=== PATIENT | female | born 1945 | race Caucasian/White ===

== ENCOUNTER 2018-08-27 09:56 | Emergency (ER) | payer MEDICARE, BC ==
--- NOTE | 2018-08-27 10:23 | ER Document Report ---
ED Medical Screen (RME) - General Chief Complaint: Head Injury Stated Complaint: EYE INJURY Time Seen by Provider: 08/27/18 10:20 Primary Care Provider: KRISTIN RANIES NP [Primary Care Provider] - Follow up as needed Mode of Arrival: Ambulatory Information source: Patient TRAVEL OUTSIDE OF THE [place] IN LAST 30 DAYS: No - HPI Patient complains to provider of: fall Onset: This morning - pt tripped and fell earlier this am at home hit head and face. Takes ASA q d. Also pain to both forearms. No LOC - Related Data Allergies/Adverse Reactions: cephalexin monohydrate [From K[employer]] Allergy (Verified 08/27/18 10:00) Past Medical History - Past Medical History Cardiac Medical History: Reports: Hx Hypercholesterolemia, Hx Hypertension Endocrine Medical History: Reports: Hx Diabetes Mellitus Type 2 Renal/ Medical History: Denies: Hx Peritoneal Dialysis - Immunizations Hx Diphtheria, Pertussis, Tetanus Vaccination: Yes Physical Exam - Vital signs Vitals: Temp Pulse Resp BP Pulse Ox 98.9 F 77 16 141/60 H 96 08/27/18 10:01 08/27/18 10:01 08/27/18 10:01 08/27/18 10:01 08/27/18 10:01 Course - Vital Signs Vital signs: Temp Pulse Resp BP Pulse Ox 98.9 F 77 16 141/60 H 96 08/27/18 10:01 08/27/18 10:01 08/27/18 10:01 08/27/18 10:01 08/27/18 10:01 Doctor's Discharge - Discharge Referrals: KRISTIN RAINES NP [Primary Care Provider] - Follow up as needed
--- NOTE | 2018-08-27 11:58 | RADIOLOGY REPORT (SQ) ---
EXAM DESCRIPTION: FOREARM RIGHT COMPLETED DATE/TIME: 08/27/2018 11:05 am REASON FOR STUDY: fall pain right mid forearm COMPARISON: None. NUMBER OF VIEWS: Two views. TECHNIQUE: Two radiographic images acquired of the right forearm, including elbow and wrist in at le ast one projection. LIMITATIONS: None. FINDINGS: MINERALIZATION: Normal. BONES: No acute fracture. No worrisome bone lesions. SOFT TISSUES: No obvious swelling or foreign body. OTHER: No other significant finding. IMPRESSION: NEGATIVE STUDY OF THE RIGHT FOREARM. NO RADIOGRAPHIC EVIDENCE OF ACUTE INJURY. TECHNICAL DOCUMENTATION: JOB ID: [id number] [employer]- All Rights Reserved Reading location - IP/workstation name: [email or web address]
--- NOTE | 2018-08-27 11:58 | RADIOLOGY REPORT (SQ) ---
EXAM DESCRIPTION: FOREARM LEFT COMPLETED DATE/TIME: 08/27/2018 11:05 am REASON FOR STUDY: fall , injury left mid forearm COMPARISON: None. NUMBER OF VIEWS: Two views. TECHNIQUE: Two radiographic images acquired of the left forearm, including elbow and wrist in at [address] one projection. LIMITATIONS: None. FINDINGS: MINERALIZATION: Normal. BONES: No acute fracture. No worrisome bone lesions. SOFT TISSUES: No obvious swelling or foreign body. OTHER: No other significant finding. IMPRESSION: NEGATIVE STUDY OF THE LEFT FOREARM. NO RADIOGRAPHIC EVIDENCE OF ACUTE INJURY. TECHNICAL DOCUMENTATION: JOB ID: [id number] [employer]- All Rights Reserved Reading location - IP/workstation name: [email or web address] [id number]
--- NOTE | 2018-08-27 12:18 | RADIOLOGY REPORT (SQ) ---
EXAM DESCRIPTION: CT HEAD WITHOUT COMPLETED DATE/TIME: 08/27/2018 11:44 am REASON FOR STUDY: fall COMPARISON: CT facial bones same date TECHNIQUE: Axial images acquired through the brain without intravenous contrast. Images reviewed wi th bone, brain and subdural windows. Additional sagittal and coronal reconstructions were generated. Images stored on PACS. All CT scanners at this facility use dose modulation, iterative reconstruction, and/or weight based d osing when appropriate to reduce radiation dose to as low as reasonably achievable (ALARA). [facility]: Dose Right [facility]: CareDose [facility]: Dose Right [facility]: Teradose 4D [facility]: [employer] RADIATION DOSE: CT Rad equipment meets quality standard of care and radiation dose reduction techniq ues were employed. CTDIvol: 53.2 mGy. DLP: 991 mGy-cm. mGy. LIMITATIONS: None. FINDINGS: VENTRICLES: Normal size and contour. CEREBRUM: No masses. No hemorrhage. No midline shift. No evidence for acute infarction. Normal gra y/white matter differentiation. No areas of low density in the white matter. CEREBELLUM: No masses. No hemorrhage. No alteration of density. No evidence for acute infarction. EXTRAAXIAL SPACES: No fluid collections. No masses. ORBITS AND GLOBE: No intra- or extraconal masses. Normal contour of globe without masses. CALVARIUM: No fracture. PARANASAL SINUSES: There is mucous membrane thickening in the right frontal sinus and anterior ethmoi d air cells. Accompanying CT facial bones demonstrates an acute minimally depressed medial orbital w all fracture. No other facial fractures are identified. SOFT TISSUES: Right-sided preseptal orbital soft tissue swelling. OTHER: No other significant finding. IMPRESSION: No acute intracranial changes. Minimally depressed right medial orbital wall fracture, best shown on the accompanying CT facial bone s. No right orbital floor fracture. Mild right preseptal orbital soft tissue swelling without retro bulbar hematoma or gross globe injury. EVIDENCE OF ACUTE STROKE: NO. COMMENT: Quality ID # [id number]: Final reports with documentation of one or more dose reduction techniques (e.g., Automated exposure control, adjustment of the mA and/or kV according to patient size, use of iterative reconstruction technique) TECHNICAL DOCUMENTATION: JOB ID: [id number] [employer]- All Rights Reserved Reading location - IP/workstation name: [email or web address]
--- NOTE | 2018-08-27 12:21 | RADIOLOGY REPORT (SQ) ---
EXAM DESCRIPTION: CT FACIAL AREA WITHOUT COMPLETED DATE/TIME: 08/27/2018 11:44 am REASON FOR STUDY: fall COMPARISON: CT brain same date TECHNIQUE: Noncontrasted images through the facial bones and orbits windowed for bone and soft tissu e. Additional coronal and sagittal reconstructed images reviewed. All images stored on PACS. All CT scanners at this facility use dose modulation, iterative reconstruction, and/or weight based d osing when appropriate to reduce radiation dose to as low as reasonably achievable (ALARA). [facility]: Dose Right [facility]: CareDose [facility]: Dose Right [facility]: Teradose 4D [facility]: [employer] RADIATION DOSE: CT Rad equipment meets quality standard of care and radiation dose reduction techniq ues were employed. CTDIvol: 30.4 mGy. DLP: 570 mGy-cm. mGy. LIMITATIONS: None. FINDINGS: FACIAL BONES: Acute minimally depressed right medial wall orbital fracture, with adjacent fluid filling the anterior right ethmoid air cells and fronto ethmoid junction. No significant intra orbital hematoma. Findings are best shown on axial images 48-51, and coronal reconstructions 22 thro ugh 27. No right orbital floor fracture. No other facial fractures are identified. ORBITS: Right preseptal orbital soft tissue swelling without retrobulbar hematoma. Globe and optic n erve grossly intact. Right medial orbital wall fracture as above. 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 Left orbital soft tissues are unremarkable PARANASAL SINUSES: Mucous membrane thickening/ fluid in the right anterior ethmoid air cells and fron to ethmoid junction No nasal polyps. Maxillary sinus outlets are patent. SOFT TISSUES: Right preseptal orbital soft tissue swelling INFERIOR BRAIN: Limited view. No acute findings. OTHER: No other significant finding. IMPRESSION: Acute minimally depressed right medial wall orbital fracture with adjacent fluid in the anterior ethmoid air cells. No significant intraorbital hematoma. Globes intact. Right preseptal o rbital soft tissue swelling. TECHNICAL DOCUMENTATION: JOB ID: [id number] Quality ID # [id number]: Final reports with documentation of one or more dose reduction techniques (e.g., Au tomated exposure control, adjustment of the mA and/or kV according to patient size, use of iterative reconstruction technique) 2010 [employer]- All Rights Reserved Reading location - IP/workstation name: [email or web address]
[2018-08-27 13:21] VITALS: BP 129/65
--- NOTE | 2018-08-27 16:43 | ER Document Report ---
Entered by ADRIENNE RABAGO SCRIBE 08/27/18 1237 Acting as scribe for:JAZMINE GLOVER MD ED General - General Chief Complaint: Head Injury Stated Complaint: EYE INJURY Time Seen by Provider: 08/27/18 10:20 Primary Care Provider: KRISTIN RAINES NP [Primary Care Provider] - Follow up as needed Mode of Arrival: Ambulatory Information source: Patient Notes: Patient is a 73 year old female with HTN, type 2 diabetes presents to the emergency department complaining of right eye and bilateral forearm pain secondary a mechanical trip and fall. Patient states she tripped over one of her dogs when getting out of bed around 0500 this morning. She states she proceeded to fall with her arms outstretched and hit her right eye on a dresser. She sta oanh she has some bilateral forearm tenderness but otherwise feels fine. She denies a loss of consciousness. TRAVEL OUTSIDE OF THE [place] IN LAST 30 DAYS: No - Related Data Allergies/Adverse Reactions: cephalexin monohydrate [From [employer] Allergy (Verified 08/27/18 10:00) Past Medical History - General Information source: Patient - Social History Smoking Status: Former Smoker - quit 20 years ago as of 2019 Cigarette use (# per day): No Chew tobacco use (# tins/day): No Smoking Education Provided: No Frequency of alcohol use: Rare Family History: Reviewed & Not Pertinent Patient has suicidal ideation: No Patient has homicidal ideation: No - Past Medical History Cardiac Medical History: Reports: Hx Hypercholesterolemia, Hx Hypertension Endocrine Medical History: Reports: Hx Diabetes Mellitus Type 2 - Immunizations Hx Diphtheria, Pertussis, Tetanus Vaccination: Yes Review of Systems - Review of Systems Constitutional: No symptoms reported EENT: See HPI Cardiovascular: No symptoms reported Respiratory: No symptoms reported Gastrointestinal: No symptoms reported Genitourinary: No symptoms reported Female Genitourinary: No symptoms reported Musculoskeletal: See HPI Skin: No symptoms reported Hematologic/Lymphatic: No symptoms reported Neurological/Psychological: No symptoms reported -: Yes All other systems reviewed and negative Physical Exam - Vital signs Vitals: Temp Pulse Resp BP Pulse Ox 98.9 F 77 16 141/60 H 96 08/27/18 10:01 08/27/18 10:01 08/27/18 10:01 08/27/18 10:01 08/27/18 10:01 - Notes Notes: GENERAL: Alert, interacts well. No acute distress. HEAD: Normocephalic. EYES: Pupils equal, round, and reactive to light. Extraocular movements intact. Periorbital and medial orbital ecchymoses to the right eye, no bony abnormalities. ENT: Oral mucosa moist, tongue midline. Dried blood in right nostril. NECK: Full range of motion. Supple. Trachea midline. LUNGS: Clear to auscultation bilaterally, no wheezes, rales, or rhonchi. No respiratory distress. HEART: Regular rate and rhythm. No murmurs, gallops, or rubs. ABDOMEN: Soft, non-tender. Non-distended. Bowel sounds present in all 4 quadrants. No guarding, rigidity, or rebound. EXTREMITIES: Moves all 4 extremities spontaneously. Tender palpation to the left proximal radial forearm. NEUROLOGICAL: Alert and oriented x3. Normal speech. PSYCH: Normal affect, normal mood. SKIN: Warm, dry, normal turgor. No rashes or lesions noted. Course - Re-evaluation Re-evalutation: 08/27/18 13:03 Patient does have an orbital wall fracture with extension into the ethmoid sinuses. She will be put on amoxicillin. On reviewing allergies, she had a reaction to Keflex. She has taken penicillin and amoxicillin in the past without problems. - Vital Signs Vital signs: Temp Pulse Resp BP Pulse Ox 98.9 F 77 16 141/60 H 96 08/27/18 10:01 08/27/18 10:01 08/27/18 10:01 08/27/18 10:01 08/27/18 10:01 - Diagnostic Test Radiology reviewed: Image reviewed, Reports reviewed - X-rays of the forearms are unremarkable. CT scan of the head does not show intracranial injury. CT scan of the facial bones shows a minimally depressed right medial wall orbital fracture with fluid in the patient anterior ethmoid air cells. Discharge - Discharge Clinical Impression: Medial orbital wall fracture Qualifiers: Encounter type: initial encounter Fracture type: closed Qualified Code(s): S02.80XA - Fracture of other specified skull and facial bones, unspecified side, initial encounter for closed fracture Fall Qualifiers: Encounter type: initial encounter Qualified Code(s): W19.XXXA - Unspecified fall, initial encounter Contusion of face Qualifiers: Encounter type: initial encounter Qualified Code(s): S00.83XA - Contusion of other part of head, initial encounter Condition: Stable Disposition: HOME, SELF-CARE Additional Instructions: Facial Bone Fracture: You have a fracture of one of the facial bones. It is the medial wall of the orbit on the right side. It's in good position to heal. The fracture will take three to four weeks to heal. At first, the injured area should be cold-packed frequently. Rest in a semi-sitting position if possible. When pain and swelling subside, you can return to regular activities. Do not participate in sports for four weeks. The fracture must remain undisturbed. Call the doctor or return for re-evaluation if you suspect a re-injury, or if any of the following signs of complications occur: continued drainage of fluid or blood from the nose, fever, severe facial swelling or increasing pain, numbness, or loss of vision. Take medications as prescribed. Use ice packs today. Take Tylenol for pain if needed. Avoid blowing your nose. Follow-up with [facility] pelleter or a local ear nose and throat surgeon. Follow-up with your eye doctor. RETURN TO THE EMERGENCY ROOM IF ANY NEW OR WORSENING SYMPTOMS. Prescriptions: Amoxicillin Trihydrate [Amoxil 500 mg Capsule] 500 mg PO TID #30 cap Referrals: KRISTIN RAINES NP [Primary Care Provider] - Follow up as needed [facility] [Provider Group] - Follow up in 3-5 days Scribe Attestation: 08/27/18 13:01 I personally performed the services described in the documentation, reviewed and edited the documentation which was dictated to the scribe in my presence, and it accurately records my words and actions. I personally performed the services described in the documentation, reviewed and edited the documentation which was dictated to the scribe in my presence, and it accurately records my words and actions.
== END 2018-08-27 13:24 | disposition home or self-care (01) ==
LOC: ER 09:56
DX: S02.81XA Fracture of other specified skull and facial bones, right side, initial encounter for closed fracture (principal); M79.632 Pain in left forearm; M79.631 Pain in right forearm; W01.190A Fall on same level from slipping, tripping and stumbling with subsequent striking against furniture, initial encounter; Y93.89 Activity, other specified; E11.9 Type 2 diabetes mellitus without complications; I10 Essential (primary) hypertension; Z87.891 Personal history of nicotine dependence; Z88.1 Allergy status to other antibiotic agents
CPT/HCPCS: 70450; 70486; 99284